=== PATIENT | male | born 1975 | race American Indian/Alaskan Native ===

== ENCOUNTER 2018-05-20 14:35 | Emergency (ER) | payer OTHER ==
[2018-05-20] MEDS ORDERED: Albuterol-Ipratrop 3 mg / 0.5 (3 ml) UD INH STA (18:33)
[2018-05-20] MEDS ORDERED: Sodium Chloride 0.9% 1,000 ML IV ONE (18:33)
--- NOTE | 2018-05-20 18:34 | C.PDOC ---
History Of Present Illness 42 year old male presents to ED with complaint of generalized body aches, SOB, and right sided chest pain for the past 2 days. Patient states that it feels likes he has the flu. He also states these symptoms triggered his asthma. Gaye magaña denies sick contact and denies getting the flu vaccine. He denies nausea, vomiting, fever, chills, and diaphoresis. Time Seen by Provider: 05/20/18 18:08 Chief Complaint (Nursing): Shortness Of Breath History Per: Patient History/Exam Limitations: no limitations Onset/Duration Of Symptoms: Days (2) Current Symptoms Are (Timing): Still Present Quality: "Pain" Associated Symptoms: Chest Pain. denies: Fever, Chills, Sweating, Bloody Cough, Productive Cough Past Medical History Reviewed: Historical Data, Nursing Documentation, Vital Signs Vital Signs: Last Vital Signs Temp 98.5 F 05/20/18 15:00 Pulse 84 05/20/18 15:00 Resp 19 05/20/18 17:15 BP 127/81 05/20/18 15:00 Pulse Ox 98 05/20/18 17:15 - Medical History PMH: Asthma Surgical History: No Surg Hx Family History: States: Unknown Family Hx - Social History Hx Tobacco Use: No Hx Alcohol Use: No Hx Substance Use: No - Immunization History Hx Tetanus Toxoid Vaccination: No Hx Influenza Vaccination: No Hx Pneumococcal Vaccination: No Review Of Systems Constitutional: Positive for: Malaise. Negative for: Fever, Chills, Weakness Cardiovascular: Positive for: Chest Pain (right-sided) Respiratory: Positive for: Shortness of Breath Gastrointestinal: Negative for: Nausea, Vomiting Neurological: Negative for: Weakness, Numbness, Dizziness Physical Exam - Physical Exam Appears: Well, Non-toxic, No Acute Distress Skin: Normal Color, Warm, Dry Head: Atraumatic, Normacephalic Eye(s): bilateral: Normal Inspection, PERRL, EOMI Oral Mucosa: Moist Neck: Normal ROM, Supple Chest: Symmetrical Cardiovascular: Rhythm Regular, No Murmur Respiratory: No Accessory Muscle Use, No Rales, No Rhonchi, Wheezing (faint, bilaterally) Gastrointestinal/Abdominal: Soft, No Tenderness Extremity: Capillary Refill (<2 seconds) Extremity: Bilateral: Atraumatic, Normal Color And Temperature, Normal ROM Neurological/Psych: Oriented x3, Normal Speech, Normal Cognition ED Course And Treatment - Laboratory Results Result Diagrams: 05/20/18 19:04 05/20/18 19:04 O2 Sat by Pulse Oximetry: 98 (in RA) Medical Decision Making Medical Decision Making: Impression: 42 year old male with generalized body aches, SOB, and right sided chest pain. Plan: EKG CXR BMP CBC Duoneb INH Solu-medrol IV IV fluids Toradol IVP Flu a/b swab MDM: Most likely viral syndrome with asthma exacerbation. Labs ordered with flu swab Patient given Duoneb and solu-medrol Re-evaluate patient Re-Eval: Patient's symptoms improved to be discharged home Given referral for out patient clinic Note for 2 day work absence Dx: viral syndrome Disposition - Disposition Referrals: at [facility] [Outside] Disposition: HOME/ ROUTINE Disposition Time: 21:03 Condition: IMPROVED Additional Instructions: Take Motrin or Tylenol for fever or bodyaches. Follow up in outpatient clinic as needed. Return to the emergency department if symptoms worsen or if new symptoms develop. Prescriptions: Albuterol HFA [Ventolin HFA 90 mcg/actuation (8 g)] 2 puff IH [id number] #1 pump Albuterol 0.083% [Albuterol Sulfate 3 Ml] 3 ml IH Q6 #30 neb Nebulizer [Aeroeclipse II] 1 each MC Q6 #1 each Nebulizer and Compressor [Comp-Air Nebulizer System] 1 each MC PRN PRN #1 each PRN Reason: Wheezing Instructions: Viral Syndrome (DC) Forms: [facility] (Citizen [place]), Work Excuse Print Language: SETSWANA - Clinical Impression Clinical Impression: Viral syndrome - Scribe Statement The provider has reviewed the documentation as recorded by the Scribe (Ambar Arteaga) All medical record entries made by the Scribe were at my direction and personally dictated by me. I have reviewed the chart and agree that the record accurately reflects my personal performance of the history, physical exam, medical decision making, and the department course for this patient. I have also personally directed, reviewed, and agree with the discharge instructions and disposition.
[2018-05-20] MEDS ORDERED: Sodium Chloride 0.9% 1,000 ML ONE (18:53)
[2018-05-20] MEDS ORDERED: Albuterol-Ipratrop 3 mg / 0.5 (3 ml) UD ONE (18:53)
[2018-05-20 19:08] LABS: BASO # 0.1 K/uL (0.0-0.2); BASO % 0.9 % (0.0-2.0); EOS # 0.1 K/uL (0.0-0.7); EOS % 2.1 % (0.0-4.0); HEMOGLOBIN 15.9 g/dL (12.0-18.0); LYMPH # 1.8 K/uL (1.0-4.3); LYMPH % 29.6 % (20.0-40.0); MEAN CELL VOLUME 90.8 fL (80.0-94.0); MEAN CORPUSCULAR HEMOGLOBIN 30.7 pg (27.0-31.0); MEAN CORPUSCULAR HGB CONC 33.8 g/dL (33.0-37.0); MEAN PLATELET VOLUME 8.9 fL (7.2-11.7); MONO # 0.5 K/uL (0.0-0.8); NEUT # 3.5 K/uL (1.8-7.0); NEUT % 58.4 % (50.0-75.0); NRBC % 0.2 % (0.0-2.0); RBC 5.19 Mil/uL (4.40-5.90); RED CELL DISTRIBUTION WIDTH 13.9 % (11.5-14.5)
[2018-05-20 19:56] LABS: BLOOD UREA NITROGEN 12 mg/dL (9-20); CALCIUM 9.3 mg/dl (8.6-10.4); GFR NON-AFRICAN AMERICAN > 60
[2018-05-20 21:34] VITALS: BP 125/81; PULSE 73; RESP 18; TEMP 98.4
--- NOTE | 2018-05-21 09:57 | RAD ---
Date of service: 05/20/2018 HISTORY: cough COMPARISON: 02/28/2014 TECHNIQUE: Chest PA and lateral FINDINGS: LUNGS: No active pulmonary disease. PLEURA: No significant pleural effusion identified. No pneumothorax apparent. CARDIOVASCULAR: No aortic atherosclerotic calcification present. Normal cardiac size. No pulmonary vascular congestion. OSSEOUS STRUCTURES: Thoracic spondylosis. VISUALIZED UPPER ABDOMEN: Normal. OTHER FINDINGS: None. IMPRESSION: No active disease. No interval pathology noted.
[2018-05-23 20:17] VITALS: O2SAT 98
== END 2018-05-20 21:35 | disposition home or self-care (01) ==
LOC: C.ER 14:35
DX: B34.9 Viral infection, unspecified (principal)
CPT/HCPCS: 71046; 80048; 85025; 87804; 94150; 94640; 96374; 96375; 99285; J1885; J2930; J7030